=== PATIENT | male | born 1970 | race Caucasian/White ===

== ENCOUNTER → 2016-04-11 | Outpatient (CLI) | payer OTHER ==
--- NOTE | 2016-04-11 11:02 | DI ---
XR C-SPINE COMPLETE MIN 4VW,04/11/2016 9:13 AM: Clinical History: Cervical pain. Previous Exam: October 28, 2006 Findings: 4 views of the cervical spine are obtained to include flexion and extension views. The prevertebral s oft tissues are unremarkable. There is loss of intervertebral disc height at the C5/6 and C6/7 levels . The lung apices are clear. There is no evidence of instability on flexion or extension. Impression: Mild degenerative changes of the cervical spine at C5/6 and C6/7 otherwise unremarkable.
--- NOTE | 2016-04-11 11:04 | DI ---
XR L-SPINE MIN 4 VW,04/11/2016 9:13 AM: Clinical History: Low back pain Previous Exam: None at this facility. Findings: AP, lateral, flexion and extension views of the lumbar spine are obtained, and demonstrate an irregul ar lucency involving the anterior one third of the superior endplate of the second lumbar vertebral b florentin. There is loss of intervertebral disc height at L1/2, L3/4 and L4/5 with some mild endplate osteo phytes. There is gentle dextroscoliosis of the upper lumbar spine centered at the L2/3 level. Postsur gical changes are also seen. A nonobstructive bowel gas pattern is noted. A few vascular calcifications are seen. Impression: Minimal degenerative changes of the lumbar spine. Lucency involving the anterior third of the second lumbar vertebral body most likely represents a D[place] morl's node.
== END ==
LOC: MOB RAD 09:19
PROVIDERS: ATTEND Physician Assistant
DX: M54.5 Low back pain (principal); M50.223 Other cervical disc displacement at C6-C7 level; M47.816 Spondylosis without myelopathy or radiculopathy, lumbar region; M47.812 Spondylosis without myelopathy or radiculopathy, cervical region
CPT/HCPCS: 72050; 72110